=== PATIENT | female | born 1965 | race Caucasian/White ===

== ENCOUNTER 2017-06-24 18:25 | Observation (INO) | payer BC, MEDICAID ==
[2017-06-24] MEDS ORDERED: Sodium Chloride 0.9% 1000 ML 1,000 ML IV STA (19:53)
[2017-06-24] MEDS ORDERED: Sodium Chloride 0.9% 1000 ML 1,000 ML ONE (19:59)
[2017-06-24] MEDS ORDERED: Hydromorphone 1 mg/ml Ampule IV ONE (20:01)
[2017-06-24] MEDS ORDERED: Zofran 4 MG/2 ML VIAL IV ONE (20:01)
[2017-06-24] MEDS ORDERED: PROTONIX 40 MG IV IV ONE ×2 (20:01→20:11)
--- NOTE | 2017-06-24 20:09 | ERPHSYRPT ---
- History of Present Illness Time Seen by Provider: 06/24/17 19:40 Historian: patient Exam Limitations: clinical condition Patient Subjective Stated Complaint: pt states she has been having rt side abd pain radiating to rt shoulder sice approx 1100 today. Triage Nursing Assessment: pt alert and oriented, answerrs questions approp. pt ambulatory with slow steady gait noted. respirations nonalbored with lungs cta. abd soft. bowel sounds present. Physician History: PATIENT IS 3 WEEKS POSTOPERATIVE LAPAROSCOPIC CHOLECYSTECTOMY WHO COMPLAINS OF RIGHT LOWER ABDOMINAL PAINS PROGRESSIVE THROUGHOUT THE DAY, STATES PAIN RADIATES TO HER RIGHT SHOULDER BLADE. HAS ASSOCIATED NAUSEA. DENIES EMESIS OR DIARRHEA. HOSPITALIZED FOR ATRIAL FIBRILLATION, HAD NORMAL CARDIAC CATHERIZATION, WITH ELIQUIS AND COREG DISCONTINUED Timing/Duration: today Activities at Onset: none Quality: sharpness, stabbing Abdominal Pain Onset Location: RLQ Pain Radiation: other (TO RIGHT SHOULDER) Severity of Pain-Max: severe Severity of Pain-Current: severe Modifying Factors: Improves With: movement Associated Symptoms: nausea Previous symptoms: same symptoms as today Allergies/Adverse Reactions: morphine Allergy (Verified 06/24/17 19:21) Home Medications: Apixaban [Eliquis] 5 mg PO BID 06/24/17 [History] Carvedilol 6.25 mg [Coreg 6.25 MG] 6.25 mg PO BID 06/24/17 [History] Hydrocodone/Acetaminophen [[employer] 5-325 Tablet] 1 each PO Q4HPRN PRN 06/24/17 [ History] Lisinopril 10 mg [Zestril 10 MG] 10 mg PO DAILY 06/24/17 [History] Hx Tetanus, Diphtheria Vaccination/Date Given: Yes Hx Influenza Vaccination/Date Given: Yes (2016) Hx Pneumococcal Vaccination/Date Given: No Immunizations Up to Date: Yes - Review of Systems Constitutional: No Fever, No Chills Eyes: No Symptoms Ears, Nose, & Throat: No Symptoms Respiratory: No Cough, No Dyspnea Cardiac: No Symptoms Abdominal/Gastrointestinal: Abdominal Pain, Nausea Genitourinary Symptoms: No Symptoms Musculoskeletal: No Symptoms Psychological: No Symptoms Hematologic/Lymphatic: No Symptoms - Past Medical History Cardiac History: Hypertension GI Medical History: Gallbladder Disease - Past Surgical History Past Surgical History: Yes Gastrointestinal: Cholecystectomy Female Surgical History: Hysterectomy, Section - Social History Smoking Status: Never smoker Exposure to second hand smoke: No Drug Use: none Patient Lives Alone: No - Female History Hx Last Menstrual Period: hyster 2009 - Nursing Vital Signs Nursing Vital Signs: Initial Vital Signs Temperature 97.9 F 06/24/17 19:13 Pulse Rate 103 H 06/24/17 19:13 Respiratory Rate 24 06/24/17 19:13 Blood Pressure 128/76 06/24/17 19:13 O2 Sat by Pulse Oximetry 99 06/24/17 19:13 Pain Scale Pain Intensity 7 - Physical Exam General Appearance: moderate distress Eye Exam: PERRL/EOMI, eyes nml inspection Ears, Nose, Throat Exam: normal ENT inspection Neck Exam: normal inspection Respiratory Exam: normal breath sounds, lungs clear, No respiratory distress Cardiovascular Exam: regular rate/rhythm Gastrointestinal/Abdomen Exam: soft, normal bowel sounds, tenderness (MARKED RUQ AND RIGHT SUBCOSTAL TENDERNESS WITH GUARDING) Back Exam: normal inspection, normal range of motion, No CVA tenderness, No vertebral tenderness Extremity Exam: normal inspection, normal range of motion, pelvis stable Neurologic Exam: alert, oriented x 3, cooperative, normal mood/affect, nml cerebellar function, sensation nml, No motor deficits SpO2 Interpretation: normal SpO2: 99 Oxygen Delivery: Room Air - Course EKG Interpreted by Me: RATE, Sinus Rhythm, NORMAL AXIS, Other (FLAT T-WAVES ANTERIORLATERAL ) - CT Exams Chest CT Interpretation: Tele-radiologist Report (NO EVIDENCE OF PULMONARY EMBOLISM) Abdomen/Pelvis CT Interpretation: Tele-radiologist Report (GALLBLADDER AND BILE DUCTS WTHOUT CALCIFIED STONES OR DUCTAL DILATION, NO BOWEL OBSTRUCTION, FREE AIR, NO FINGINGS TO SUGGEST APPENDIX, THERE IS A SMALL AMOUNT OF SLIGHTLY HYPERDENSE FREE FLUID IN THE ABDOMEN AND PELVIS, NO DISCRETE FLUID COLLECTION) Ordered Tests: Active Orders 24 hr Category Date Time Status Up With Assistance ROUTINE Activity 06/24/17 23:09 Active Admission/Status Order ROUTINE Care 06/24/17 23:10 Active Call Admit Doctor for Orders ON ADMISSION Care 06/24/17 23:10 Active Code Status Order ROUTINE Care 06/24/17 23:10 Active EKG-ER Only STAT Care 06/24/17 19:53 Active IV Care Q6H Care 06/24/17 23:10 Active IV Insertion STAT Care 06/24/17 19:53 Active Oxygen-ED Only NASAL CANNULA 2 lpm Care 06/24/17 19:53 Active Vital Signs Q4H Care 06/24/17 23:09 Active Consult Surgery ROUTINE Cons 06/24/17 23:09 Active NPO Diet 06/24/17 23:11 Active ABDOMEN AND PELVIS W CONTRAST [CT] Stat Exams 06/24/17 20:02 Taken CHEST WITH CONTRAST [CT] Stat Exams 06/24/17 19:55 Taken AMYLASE Stat Lab 06/24/17 20:01 Completed BLOOD CULTURE Stat Lab 06/24/17 20:15 Ordered CBC W DIFF AM.LAB Lab 06/25/17 04:00 Ordered CBC W DIFF Stat Lab 06/24/17 20:15 Completed CMP Stat Lab 06/24/17 20:15 Completed CULTURE,URINE Stat Lab 06/24/17 20:44 Received LIPASE Stat Lab 06/24/17 20:01 Completed Lactic Acid Stat Lab 06/24/17 20:30 Completed TROPONIN Q3H Lab 06/24/17 20:15 Completed TROPONIN Q3H Lab 06/24/17 23:00 Ordered TROPONIN Q3H Lab 06/25/17 02:00 Ordered TROPONIN Q3H Lab 06/25/17 05:00 Ordered TROPONIN Q3H Lab 06/25/17 08:00 Ordered UA W/ MICROSCOPIC Stat Lab 06/24/17 20:44 Completed Oxygen NASAL CANNULA 2 lpm RT 06/24/17 23:09 Active Pulse Oximetry CONTINUOUS RT 06/24/17 23:13 Active Transfer Order Routine Transfer 06/24/17 Ordered Medication Summary Generic Name Dose Route Start Last Admin Trade Name Freq PRN Reason Stop Dose Admin Hydromorphone HCl 1 mg 06/24/17 23:09 Dilaudid 2 Mg Injection IV 06/29/17 23:08 Q4H PRN PRN PAIN Sodium Chloride 1,000 mls @ 100 mls/hr 06/24/17 23:15 Sodium Chloride 0.9% 1000 Ml IV 07/24/17 23:14 .Q10H MAIRA Ondansetron HCl 4 mg 06/24/17 23:09 Zofran 4 Mg/2 Ml Vial IV 07/24/17 23:08 Q6H PRN PRN NAUSEA/VOMITING Pantoprazole Sodium 40 mg 06/24/17 23:15 Protonix 40 Mg Iv IV 07/24/17 23:14 Q24H MAIRA Discontinued Medications Generic Name Dose Route Start Last Admin Trade Name Adonay PRN Reason Stop Dose Admin Hydromorphone HCl 2 mg 06/24/17 20:01 06/24/17 20:17 Hydromorphone 1 Mg/Ml Ampule IV 06/24/17 20:02 2 mg STAT ONE Administration Hydromorphone HCl Confirm 06/24/17 20:11 Hydromorphone 1 Mg/Ml Ampule Administered 06/24/17 20:12 Dose 2 mg .ROUTE .STK-MED ONE Sodium Chloride 1,000 mls @ 500 mls/hr 06/24/17 19:53 06/24/17 20:24 Sodium Chloride 0.9% 1000 Ml IV 06/24/17 21:52 500 mls/hr .Q2H STA Administration Sodium Chloride Confirm 06/24/17 19:59 Sodium Chloride 0.9% 1000 Ml Administered 06/24/17 20:00 Dose 1,000 mls @ ud .ROUTE .STK-MED ONE Ketorolac Tromethamine 30 mg 06/24/17 22:56 06/24/17 23:05 Toradol 30 Mg Injection IV 06/24/17 22:57 30 mg STAT ONE Administration Ketorolac Tromethamine Confirm 06/24/17 23:03 Toradol 30 Mg Injection Administered 06/24/17 23:04 Dose 30 mg .ROUTE .STK-MED ONE Ondansetron HCl 4 mg 06/24/17 20:01 06/24/17 20:17 Zofran 4 Mg/2 Ml Vial IV 06/24/17 20:02 4 mg STAT ONE Administration Ondansetron HCl Confirm 06/24/17 20:11 Zofran 4 Mg/2 Ml Vial Administered 06/24/17 20:12 Dose 4 mg .ROUTE .STK-MED ONE Pantoprazole Sodium 40 mg 06/24/17 20:01 06/24/17 20:17 Protonix 40 Mg Iv IV 06/24/17 20:02 40 mg STAT ONE Administration Pantoprazole Sodium Confirm 06/24/17 20:11 Protonix 40 Mg Iv Administered 06/24/17 20:12 Dose 40 mg IV .STK-MED ONE Lab/Rad Data: Laboratory Result Diagrams 06/24/17 20:15 06/24/17 20:15 Laboratory Results 06/24/17 06/24/17 06/24/17 Range/Units 20:44 20:30 20:15 WBC (4.0-10.5) K/mm3 RBC (4.1-5.4) M/mm3 Hgb (12.0-16.0) gm/dl Hct (35-47) % MCV (78-100) fl MCH (26-32) pg MCHC (32-36) g/dl RDW (11.5-14.0) % Plt Count (150-450) K/mm3 MPV (6-9.5) fl Gran % (36.0-66.0) % Lymphocytes % (24.0-44.0) % Monocytes % (0.0-12.0) % Eosinophils % (0.00-5.0) % Basophils % (0.0-0.4) % Basophils # (0-0.4) Sodium (136-145) mEq/L Potassium (3.5-5.1) mEq/L Chloride (98-107) mEq/L Carbon Dioxide (21-32) mEq/L Anion Gap (5-15) MEQ/L BUN (9-20) mg/dL Creatinine (0.55-1.30) mg/dl Estimated GFR ML/MIN Glucose (70-110) MG/DL Lactic Acid 1.4 (0.4-2.0) Calcium (8.5-10.1) mg/dL Total Bilirubin (0.2-1.0) mg/dL AST (15-37) U/L ALT (12-78) U/L Alkaline Phosphatase (46-116) U/L Troponin I < 0.017 (0.000-0.056) ng/ml Serum Total Protein (6.4-8.2) gm/dL Albumin (3.4-5.0) g/dL Amylase (25-115) U/L Lipase (73-393) U/L Ur Collection Type VOID Urine Color YELLOW (YELLOW) Urine Appearance CLOUDY (CLEAR) Urine pH 5.0 (5-6) Ur Specific [place] 1.025 (1.005-1.025) Urine Protein TRACE (Negative) Urine Ketones SMALL (NEGATIVE) Urine Blood 250 (0-5) Skyler/ul Urine Nitrite NEGATIVE (NEGATIVE) Urine Bilirubin NEGATIVE (NEGATIVE) Urine Urobilinogen NORMAL (0-1) mg/dL Ur Leukocyte Esterase TRACE (NEGATIVE) Urine Microscopic RBC 2-5 (0-2) /HPF Urine Microscopic WBC 2-5 (0-5) /HPF Ur Epithelial Cells MODERATE (FEW) /HPF Calcium Oxalate Crystal 5-10 (NEGATIVE) /HPF Amorphous Crystals MANY (NEGATIVE) /HPF Urine Bacteria FEW (NEGATIVE) /HPF Urine Mucus SLIGHT (NEGATIVE) /HPF Urine Culture Reflexed YES (NO) Urine Glucose 50 (NEGATIVE) mg/dL Specimen Received 06/24/17 2030 06/24/17 06/24/17 06/24/17 Range/Units 20:15 20:15 20:01 WBC 14.2 H (4.0-10.5) K/mm3 RBC 3.68 L (4.1-5.4) M/mm3 Hgb 11.2 L (12.0-16.0) gm/dl Hct 34.4 L (35-47) % MCV 93.5 (78-100) fl MCH 30.4 (26-32) pg MCHC 32.6 (32-36) g/dl RDW 14.3 H (11.5-14.0) % Plt Count 514 H (150-450) K/mm3 MPV 10.7 H (6-9.5) fl Gran % 84.8 H (36.0-66.0) % Lymphocytes % 10.6 L (24.0-44.0) % Monocytes % 3.7 (0.0-12.0) % Eosinophils % 0.8 (0.00-5.0) % Basophils % 0.1 (0.0-0.4) % Basophils # 0.02 (0-0.4) Sodium 140 (136-145) mEq/L Potassium 4.2 (3.5-5.1) mEq/L Chloride 104 (98-107) mEq/L Carbon Dioxide 28.0 (21-32) mEq/L Anion Gap 11.8 (5-15) MEQ/L BUN 14 (9-20) mg/dL Creatinine 0.88 (0.55-1.30) mg/dl Estimated GFR > 60 ML/MIN Glucose 135 H (70-110) MG/DL Lactic Acid (0.4-2.0) Calcium 9.5 (8.5-10.1) mg/dL Total Bilirubin 0.50 (0.2-1.0) mg/dL AST 27 (15-37) U/L ALT 41 (12-78) U/L Alkaline Phosphatase 85 (46-116) U/L Troponin I (0.000-0.056) ng/ml Serum Total Protein 7.6 (6.4-8.2) gm/dL Albumin 3.8 (3.4-5.0) g/dL Amylase 63 (25-115) U/L Lipase 347 (73-393) U/L Ur Collection Type Urine Color (YELLOW) Urine Appearance (CLEAR) Urine pH (5-6) Ur Specific [place] (1.005-1.025) Urine Protein (Negative) Urine Ketones (NEGATIVE) Urine Blood (0-5) Skyler/ul Urine Nitrite (NEGATIVE) Urine Bilirubin (NEGATIVE) Urine Urobilinogen (0-1) mg/dL Ur Leukocyte Esterase (NEGATIVE) Urine Microscopic RBC (0-2) /HPF Urine Microscopic WBC (0-5) /HPF Ur Epithelial Cells (FEW) /HPF Calcium Oxalate Crystal (NEGATIVE) /HPF Amorphous Crystals (NEGATIVE) /HPF Urine Bacteria (NEGATIVE) /HPF Urine Mucus (NEGATIVE) /HPF Urine Culture Reflexed (NO) Urine Glucose (NEGATIVE) mg/dL Specimen Received - Progress Progress: pain not gone completely Progress Note: 06/24/17 20:08 IV NORMAL SALINE 500ML/HR, ZOFRAN 4MG, PROTONIX 40MG, DILAUDID 2MG IV, OXYGEN 2L 06/24/17 23:[address] Keara (DISCUSSED WITH DR Rodrigo AVENDAÑO FOR ADMISSION), Other ( CONSULTED DR PHILIP ALVARADO FOR SURGERY CONSULT IN AM) - Departure Time of Disposition: 23:20 Departure Disposition: Observation Clinical Impression: ACUTE ABDOMINAL PAIN Condition: Stable Critical Care Time: No Referrals: GONZALO MCNEAL [Primary Care Provider] -
[2017-06-24] MEDS ORDERED: Hydromorphone 1 mg/ml Ampule ONE (20:11)
[2017-06-24] MEDS ORDERED: Zofran 4 MG/2 ML VIAL ONE (20:11)
[2017-06-24 20:22] LABS: BASOPHIL % 0.1 % (0.0-0.4); Eosinophil % 0.8 % (0.00-5.0); Granulocytes % 84.8 % (36.0-66.0); Lymphocytes % 10.6 % (24.0-44.0); Mean Cell Volume 93.5 fl (78-100); Mean Corpuscular Hemoglobin 30.4 pg (26-32); Mean Platelet Volume 10.7 fl (6-9.5); Monocytes % 3.7 % (0.0-12.0); Platelet Count 514 K/mm3 (150-450); Red Blood Count 3.68 M/mm3 (4.1-5.4); Red Cell Distribution Width 14.3 % (11.5-14.0); White Blood Count 14.2 K/mm3 (4.0-10.5)
[2017-06-24 20:40] LABS: LIPASE 347 U/L (73-393)
[2017-06-24 20:43] LABS: ALBUMIN 3.8 g/dL (3.4-5.0); ALKALINE PHOSPHATASE 85 U/L (46-116); ANION GAP 11.8 MEQ/L (5-15); BLOOD UREA NITROGEN 14 mg/dL (9-20); CHLORIDE 104 mEq/L (98-107); Glucose 135 MG/DL (70-110); Potassium 4.2 mEq/L (3.5-5.1); SGOT/AST 27 U/L (15-37); SGPT/ALT 41 U/L (12-78); SODIUM 140 mEq/L (136-145); Total Protein 7.6 gm/dL (6.4-8.2)
[2017-06-24 21:12] LABS: Collection Type VOID; Leukocyte Esterase TRACE (NEGATIVE)
[2017-06-24 21:13] LABS: ADD URINE CULTURE? YES (NO); Bacteria FEW /HPF (NEGATIVE); Bilirubin NEGATIVE (NEGATIVE); Blood 250 Ery/ul (0-5); COMPLETE URINE MICROSCOPIC? YES; Epithelial Cells MODERATE /HPF (FEW); Glucose 50 mg/dL (NEGATIVE); Mucus SLIGHT /HPF (NEGATIVE)
[2017-06-24] MEDS ORDERED: TORAdol 30 mg Injection IV ONE (22:56)
[2017-06-24] MEDS ORDERED: TORAdol 30 mg Injection ONE (23:03)
[2017-06-24] MEDS ORDERED: Zofran 4 MG/2 ML VIAL IV PRN (23:09)
[2017-06-24] MEDS ORDERED: PROTONIX 40 MG IV IV SCH (23:15)
[2017-06-25] MEDS ORDERED: DILAUDID 2 MG INJECTION ONE (02:30)
[2017-06-25] MEDS: DILAUDID 2 MG INJECTION IV PRN ×2 (02:33→11:58)
[2017-06-25] MEDS: Sodium Chloride 0.9% 1000 ML 1,000 ML IV SCH ×2 (02:33→11:57)
[2017-06-25 06:01] LABS: Eosinophil % 0.9 % (0.00-5.0); Granulocytes % 70.2 % (36.0-66.0); Lymphocytes % 21.9 % (24.0-44.0); Mean Cell Volume 94.3 fl (78-100); Mean Platelet Volume 10.4 fl (6-9.5); Platelet Count 339 K/mm3 (150-450); Red Blood Count 2.96 M/mm3 (4.1-5.4); Red Cell Distribution Width 14.1 % (11.5-14.0)
--- NOTE | 2017-06-25 08:56 | XRAY ---
Indication: Right upper quadrant pain. Status post cholecystectomy June 02, 2017. Multiple contiguous axial images obtained through the abdomen and pelvis using 80 cc Isovue 370 contrast. Comparison: May 18, 2017. Lung bases now demonstrates mild bilateral dependent atelectasis with stable tiny right base calcified granuloma. Heart is not enlarged. Stable small hiatal hernia. There has been interval cholecystectomy. There is now small free fluid in the gallbladder fossa and around the liver and spleen. Additional small free fluid along the left colic gutter and in the pelvis. No walled off fluid collection or free air. Stable scattered calcified splenic granulomas, left renal cysts, and hysterectomy. Previous right renal calculus presumed obscured due to contrast. Noncontrasted stomach and bowel loops appear nonobstructed. Remaining liver, pancreas, adrenal glands, kidneys, ureters, bladder, and aorta appear unremarkable. No pathologic retroperitoneal lymphadenopathy. Impression: 1. Status post cholecystectomy with new abdomen/pelvic free fluid. No walled off fluid collection or free air. 2. Stable small hiatal hernia and left ovary cyst. Comment: Preliminary interpretation was made by [facility]. No discrepancy. CT DI 20.45
--- NOTE | 2017-06-25 09:00 | XRAY ---
Indication: Chest and right upper quadrant abdominal pain. Status post cholecystectomy June 02, 2017. History atrial fibrillation. Multiple contiguous axial images obtained through the chest using 80 cc Isovue 370 contrast and PE protocol. Comparison: None. There is satisfactory opacification of the pulmonary arteries to include the lobar and segmental branches. No filling defect or pulmonary embolus. Heart is not enlarged. Aorta is normal in course and caliber. Subcarinal calcified node. No pathologic mediastinal/hilar lymphadenopathy. Small hiatal hernia. Examination of lung parenchyma demonstrates mild bilateral dependent atelectasis and right middle lobe calcified granuloma. No suspicious pulmonary mass, infiltrate, or effusion. Bony thorax intact with minimal degenerative changes throughout the spine. CT abdomen reported separately. Impression: 1. Negative pulmonary embolus. No acute cardiopulmonary abnormalities. 2. Incidental small hiatal hernia and evidence for old granulomatous disease. Comment: Preliminary interpretation was made by [facility]. No discrepancy. CT DI 23.35
--- NOTE | 2017-06-25 10:05 | XRAY ---
Indication: Severe abdominal pain. Status post cholecystectomy. Rule out biloma. Comparison: None Patient received 5.2 mCi technetium 99 Choletec. Immediate anterior planar imaging was performed for 60 minutes. Normal hepatic activity on the first image. Normal biliary and biliary to bowel activity within 10 minutes. No gallbladder activity consistent with cholecystectomy. There is no abnormal extra biliary activity or evidence for biloma. Impression: Negative for biliary leak or biloma.
--- NOTE | 2017-06-25 10:56 | CONS ---
CONSULT DATE: 06/25/2017 HISTORY: The patient is a 52 year-old female who had laparoscopic cholecystectomy three weeks or so ago came in with some pain in abdomen radiating up to right chest. She had CT negative for pulmonary embolism. She had white blood cell count 8, hemoglobin 8.9. Lactic acid normal. CT of the chest was negative for pulmonary embolism. She had a small amount of fluid on CT of the abdomen otherwise fairly unremarkable CT abdomen. She had a HIDA scan this morning showed no evidence of bile leak. She is feeling better today and the pain she had is much improved. PAST MEDICAL HISTORY: As noted above. Atrial fibrillation in the past and hypertension. HOME MEDICATIONS: She has been on Eliquis, Coreg, Manning, Zestril. ALLERGIES: MORPHINE. FAMILY HISTORY: Negative in regards to this problem. SOCIAL HISTORY: No smoking or alcohol abuse. PAST SURGICAL HISTORY: Hysterectomy, section, cholecystectomy in the past. REVIEW OF SYSTEMS: Twelve systems reviewed per admission assessment. Again, she is feeling quite well this morning. PHYSICAL EXAMINATION: GENERAL: No acute distress. HEENT: Sclera nonicteric. NECK: No JVD. CHEST: Equal excursion, nonlabored breathing. CVS: Regular rate and rhythm. ABDOMEN: Soft. Incision healing well. Minimal discomfort. No rebound. No guarding. No peritoneal signs. EXTREMITIES: No significant edema. NEURO: Alert, moving extremities grossly symmetrically. LAB DATA AND TESTS: Liver function test normal. CT negative for pulmonary embolism. HIDA scan negative for any bile leak. IMPRESSION: Postoperative vague aches and pains of unclear etiology either way she is much improved and no obvious collections. No obvious pulmonary embolism. No obvious bile leak. No need for any emergent surgical intervention as she is feeling much better today. Whether this is just postoperative biliary spasm or not is unclear. Either way she seems to be improved. I will see if she can try to advance her diet. If she can advance her diet she can be released and follow up in the office. Should she have some persistent symptoms down the road could consider upper endoscopy at this point. As she seems to be doing quite well at this time will allow her to advance her diet. This patient was seen for Dr. Ulrich who was contact clerk for our group.
[2017-06-25 11:12] VITALS: BP 161/79; PULSE 82; O2SAT 95
--- NOTE | 2017-06-25 13:16 | PCM.DCORD ---
- Discharge Discharge Date: 06/25/17 Disposition: Home, Self-Care Condition: Stable Prescriptions: New Ibuprofen 600 mg PO TID PRN #30 tablet PRN Reason: Pain PANTOPRAZOLE 40 mg Tablet [Protonix 40MG Tablet] 40 mg PO BID #60 tab Continue Hydrocodone/Acetaminophen [[employer] 5-325 Tablet] 1 each PO Q4HPRN PRN PRN Reason: Pain Lisinopril 10 mg [Zestril 10 MG] 5 mg PO DAILY Aspirin 81 gm Chew [Baby Aspirin 81 mg Chew] 1 tab PO DAILY Follow up with: GONZALO MNCEAL [NON-STAFF PHY W/O PRIVILEGES] - DAVON ALVARADO [ACTIVE STAFF] - 1 Week
--- NOTE | 2017-06-25 13:24 | PCM.HP ---
History of Present Illness - Chief Complaint Chief Complaint: abd pain Date: 06/25/17 History of Present Illness: is a 52 year old female. who presented with worsening right upper quadrant pain radiating to the back and shoulder 3 weeks after cholecystectomy. She had cholecystectomy for some vague pains and incidental gallstones found after she was treated for kidney stones. She was initially discharged but then readmitted to [facility] for 6 days after apparently having atrial fibrillation and had normal heart cath and echo per patient and is following with Dr. Tanner from cardiology who stopped her carvedilol and her eliquis after only being on a short duration due to in her words him saying she did not need it. She has been having discomfort at home. The hydrocodone just makes her feel bad and doesn't help with the pain. She tried tramadol with no help. She states she usually uses ibuprofen for her pain but has not tried with this due to her other problems. She has no heartburn, no vomiting, no diarrhea and no melena or bloody stools. - Review of Systems Constitutional: No Fever, No Chills Eyes: No Symptoms Ears, Nose, & Throat: No Symptoms Respiratory: No Cough, No Short Of Breath Cardiac: No Chest Pain, No Edema, No Syncope Abdominal/Gastrointestinal: Abdominal Pain, No Nausea, No Vomiting, No Diarrhea Genitourinary Symptoms: No Dysuria Musculoskeletal: No Back Pain, No Neck Pain Skin: No Rash Neurological: No Dizziness, No Focal Weakness, No Sensory Changes Psychological: No Symptoms Endocrine: No Symptoms Hematologic/Lymphatic: No Symptoms Immunological/Allergic: No Symptoms Medications & Allergies Home Medications: Home Medication List Hydrocodone/Acetaminophen [[place] 5-325 Tablet] 1 each PO Q4HPRN PRN 06/24/17 [ History Confirmed 06/24/17] Lisinopril 10 mg [Zestril 10 MG] 5 mg PO DAILY 06/24/17 [History Confirmed 06/25/17] Aspirin 81 gm Chew [Baby Aspirin 81 mg Chew] 1 tab PO DAILY 06/25/17 [ History Confirmed 06/25/17] Ibuprofen 600 mg PO TID PRN #30 tablet 06/25/17 [Rx] PANTOPRAZOLE 40 mg Tablet [Protonix 40MG Tablet] 40 mg PO BID #60 tab [Rx] Allergies/Adverse Reactions: Allergies Allergy/AdvReac Type Severity Reaction Status Date / Time morphine Allergy Verified 06/24/17 19:21 - Past Medical History Cardiac History: Hypertension GI Medical History: Gallbladder Disease - Female History Hx Last Menstrual Period: hyster 2010 Are you now?: No - Past Surgical History Past Surgical History: Yes GI Surgical History: Cholecystectomy Female Surgical History: Hysterectomy, Section Other Surgical History: bartholin gland removed - Social History Smoking Status: Never smoker Exposure to second hand smoke: No Alcohol: Occasionally Drug Use: none - Physical Exam Vital Signs: Vital Signs - 24 hr Temp Pulse Resp BP Pulse Ox 06/25/17 11:11 98.5 F 82 16 161/79 95 06/25/17 06:54 98.3 F 90 16 167/80 97 06/25/17 04:00 98.1 F 86 15 144/76 92 L 06/25/17 00:20 98.3 F 96 H 16 142/74 96 06/25/17 00:00 96 06/24/17 23:42 80 16 129/72 98 06/24/17 23:21 99 06/24/17 23:07 84 20 145/76 98 06/24/17 22:50 86 22 158/89 98 06/24/17 21:52 88 20 168/91 99 06/24/17 20:50 16 06/24/17 20:25 82 20 107/71 100 06/24/17 19:13 97.9 F 103 H 24 128/76 99 Oxygen-Last 24 hours O2 Percentage 2 Liters = 28% O2 Percentage 2 Liters = 28% O2 Percentage 2 Liters = 28% General Appearance: no apparent distress, alert, obese Neurologic Exam: alert, oriented x 3, cooperative, normal mood/affect, nml cerebellar function, nml station & gait, sensation nml, No motor deficits Eye Exam: PERRL/EOMI, eyes nml inspection Ears, Nose, Throat Exam: normal ENT inspection, pharynx normal, moist mucous membranes Neck Exam: normal inspection, non-tender, supple, full range of motion Respiratory Exam: normal breath sounds, lungs clear, No respiratory distress Cardiovascular Exam: regular rate/rhythm, normal heart sounds, normal peripheral pulses Gastrointestinal/Abdomen Exam: soft, normal bowel sounds, tenderness (right upper quadrant and epigastric area), No distention, No mass, No ecchymosis, No rebound Back Exam: normal inspection, normal range of motion, No CVA tenderness, No vertebral tenderness Extremity Exam: normal inspection, normal range of motion, pelvis stable Skin Exam: normal color, warm, dry, No rash Lymphatic Exam: No adenopathy Results - Labs Lab/Micro Results: Lab Results-Last 24 Hours 06/25/17 Range/Units 05:30 WBC 8.0 (4.0-10.5) K/mm3 RBC 2.96 L (4.1-5.4) M/mm3 Hgb 8.9 L (12.0-16.0) gm/dl Hct 27.9 L (35-47) % MCV 94.3 (78-100) fl MCH 30.0 (26-32) pg MCHC 31.9 L (32-36) g/dl RDW 14.1 H (11.5-14.0) % Plt Count 339 (150-450) K/mm3 MPV 10.4 H (6-9.5) fl Gran % 70.2 H (36.0-66.0) % Lymphocytes % 21.9 L (24.0-44.0) % Monocytes % 7.0 (0.0-12.0) % Eosinophils % 0.9 (0.00-5.0) % Basophils % 0.0 (0.0-0.4) % Basophils # 0 (0-0.4) - Radiology Impressions Radiology Exams & Impressions: Radiology Procedures Category Date Time Status HIDA-GALL BLADDER [NUCMED] Urgent Exams 06/25/17 00:33 Completed - Other Procedures and Tests Respiratory Therapy 06/24/17 23:09 Oxygen NASAL CANNULA 2 lpm Assessment/Plan (1) Post-operative pain Current Visit: Yes Status: Acute Assessment & Plan: she has all the pain in the area of the right upper quadrant the worse. She has free fluid with no evidence of infection on CT and afebrile She was evaluated by Dr. [employer] education teacher for Dr. Ulrich today and will continue with outpatient f/u no evidence of biliary leak possible biliary spasms labs now wnl except anemia will add protonix bid as will try ibuprofen 600 mg tid prn for her pain as she has not tolerated the opiate medications for her pain. She is to f/u with Dr. Ulrich to consider EGD vs MRCP vs ERCP was discussed if her pain fails to improve however at this time with no bleeding and normal liver enzymes as well as lipase will hold off on these testing. She also notes extensive testing already done at [facility] but we do not have those results available at this time. Code(s): G89.18 - OTHER ACUTE POSTPROCEDURAL PAIN (2) Abdominal pain Current Visit: Yes Status: Acute Code(s): R10.9 - UNSPECIFIED ABDOMINAL PAIN (3) Hypertension Current Visit: Yes Status: Acute Code(s): I10 - ESSENTIAL (PRIMARY) HYPERTENSION
[2017-06-25] MEDS ORDERED: NORCO 5/325 MG PO PRN (13:36)
[2017-06-25] MEDS ORDERED: Zestril 10 MG PO SCH (14:00)
[2017-06-25] MEDS ORDERED: PROTONIX 40 MG IV IV SCH (22:00)
== END 2017-06-25 14:20 | disposition home or self-care (01) ==
LOC: ED 18:25 → MED SURG 06-25 00:09
PROVIDERS: ADMIT Family Medicine; ATTEND Family Medicine
DX: G89.18 Other acute postprocedural pain (principal); R10.31 Right lower quadrant pain; I10 Essential (primary) hypertension; Z90.49 Acquired absence of other specified parts of digestive tract; I48.91 Unspecified atrial fibrillation; Z79.01 Long term (current) use of anticoagulants; Z79.899 Other long term (current) drug therapy; F45.42 Pain disorder with related psychological factors
CPT/HCPCS: 36000; 36415; 71260; 74177; 78226; 80053; 81000; 82150; 83605; 83690; 84484; 85025; 87040; 87086; 93005; 96360; 96374; 96375; 99285; A9537; G0378; J1170; J1885; J2405; A9270-GY

== ENCOUNTER 2018-10-25 08:25 | Emergency (ER) | payer MEDICAID, OTHER ==
[2018-10-25 08:48] VITALS: O2SAT 98
[2018-10-25] MEDS ORDERED: TORAdol 30 mg Injection IM ONE (08:49)
[2018-10-25] MEDS ORDERED: TORAdol 30 mg Injection ONE (08:54)
--- NOTE | 2018-10-25 08:57 | ERPHSYRPT ---
- History of Present Illness Time Seen by Provider: 10/25/18 08:53 Source: patient Exam Limitations: no limitations Patient Subjective Stated Complaint: states pain in low back going into right hip x 3 weeks. no known injury Triage Nursing Assessment: alert and tearful. able to ambulate. denies injury. denies urinary symptoms. pain in low back that goes to right hip. GODINEZ pain decrease with legs drawm up. Physician History: 53-year-old white female with history of high blood pressure patient arrives with complaint of pain in her low lumbar region radiating into her right hip symptoms for 3 weeks no neurologic symptoms no urinary symptoms. Pain is worse with movement denies obvious injury. Past medical history includes high blood pressure gallbladder disease. Past surgical history cholecystectomy hysterectomy and Timing/Duration: week(s) (3 weeks) Severity: moderate Modifying Factors: Worsens With: cold therapy, eating, immobilization, medication, movement, rest, acetaminophen, ibuprofen, nothing Associated Symptoms: fever, No nausea, No vomiting, No abdominal pain, No shortness of breath, No heartburn, No diaphoresis, No cough, No chills, No chest pain, No headaches, No loss of appetite, No malaise, No rash, No syncope, No seizure, No weakness Allergies/Adverse Reactions: morphine Allergy (Verified 06/24/17 19:21) Home Medications: Hydrocodone/Acetaminophen [Brookesmith 5-325 Tablet] 1 each PO Q4HPRN PRN 06/24/17 [ History] Lisinopril 10 mg [Zestril 10 MG] 5 mg PO DAILY 06/24/17 [History] Aspirin 81 gm Chew [Baby Aspirin 81 mg Chew] 1 tab PO DAILY 06/25/17 [ History] Hx Tetanus, Diphtheria Vaccination/Date Given: Yes Hx Influenza Vaccination/Date Given: Yes (2016) Hx Pneumococcal Vaccination/Date Given: No - Review of Systems Constitutional: No Fever, No Chills Eyes: No Symptoms Ears, Nose, & Throat: No Symptoms Respiratory: No Cough, No Dyspnea Cardiac: No Chest Pain, No Edema, No Syncope Abdominal/Gastrointestinal: No Abdominal Pain, No Nausea, No Vomiting, No Diarrhea Genitourinary Symptoms: No Dysuria Musculoskeletal: Back Pain, No Arthralgias, No Neck Pain, No Deformity, No Fall , No Injury, No Joint Redness, No Joint Pain, No Joint Swelling, No Myalgias Skin: No Rash Neurological: No Dizziness, No Focal Weakness, No Sensory Changes Psychological: No Symptoms Endocrine: No Symptoms All Other Systems: Reviewed and Negative - Past Medical History Pertinent Past Medical History: Yes Cardiac History: Hypertension GI Medical History: Gallbladder Disease - Past Surgical History Past Surgical History: Yes Gastrointestinal: Cholecystectomy Female Surgical History: Hysterectomy, Section Other Surgical History: bartholin gland removed - Social History Smoking Status: Never smoker Exposure to second hand smoke: No Drug Use: none Patient Lives Alone: No - Female History Hx Now: No - Nursing Vital Signs Nursing Vital Signs: Initial Vital Signs Temperature 98.0 F 10/25/18 08:40 Pulse Rate 114 H 10/25/18 08:40 Respiratory Rate 18 10/25/18 08:40 Blood Pressure 184/109 10/25/18 08:40 O2 Sat by Pulse Oximetry 98 10/25/18 08:40 Pain Scale Pain Intensity 4 - Physical Exam General Appearance: mild distress, alert Eye Exam: PERRL/EOMI, eyes nml inspection Ears, Nose, Throat Exam: normal ENT inspection, TMs normal, pharynx normal, moist mucous membranes Neck Exam: normal inspection, non-tender, supple, full range of motion Respiratory Exam: normal breath sounds, lungs clear, No respiratory distress Cardiovascular Exam: regular rate/rhythm, normal heart sounds, normal peripheral pulses Pelvic Exam: not done Back Exam: other (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), No CVA tenderness Extremity Exam: normal inspection, normal range of motion, pelvis stable, No limited range of motion Neurologic Exam: alert, oriented x 3, cooperative, normal mood/affect, nml cerebellar function, nml station & gait, sensation nml, No motor deficits Skin Exam: normal color, warm, dry, No rash Lymphatic Exam: No adenopathy SpO2 Interpretation: normal (98%) SpO2: 98 - Course Nursing assessment & vital signs reviewed: Yes - Radiology Exams L-Spine X-ray Interpretation: Discussed w/ radiologist (x-ray lumbar spine: Impression: Normal alignment with vertebral body heigdisc spaces maintained and mild bilateral L5-S1 degenerative facet arthropathy. There is now 11 mm right mid renal calculus and bilateral pelvic suture material. Remaining lumbar spine unremarkable.) Ordered Tests: Active Orders 24 hr Category Date Time Status LUMBAR LIMITED (2 OR 3 VIEWS) Stat Exams 10/25/18 08:51 Completed UA W/RFX UR CULTURE Stat Lab 10/25/18 09:00 Completed Urine Triage Profile Stat Lab 10/25/18 09:00 Completed Medication Summary Discontinued Medications Generic Name Dose Route Start Last Admin Trade Name Adonay PRN Reason Stop Dose Admin Ketorolac Tromethamine 60 mg 10/25/18 08:49 10/25/18 08:57 Toradol 30 Mg Injection IM 10/25/18 08:50 60 mg STAT ONE Administration Ketorolac Tromethamine Confirm 10/25/18 08:54 Toradol 30 Mg Injection Administered 10/25/18 08:55 Dose 60 mg .ROUTE .STK-MED ONE Lab/Rad Data: Laboratory Results 10/25/18 10/25/18 Range/Units 09:00 09:00 Urine Color SHARMAINE (YELLOW) Urine Appearance CLOUDY (CLEAR) Urine pH 5.0 (5-6) Ur Specific [place] 1.024 (1.005-1.025) Urine Protein 30 (Negative) Urine Ketones NEGATIVE (NEGATIVE) Urine Blood LARGE (0-5) Skyler/ul Urine Nitrite NEGATIVE (NEGATIVE) Urine Bilirubin NEGATIVE (NEGATIVE) Urine Urobilinogen 4 (0-1) mg/dL Ur Leukocyte Esterase NEGATIVE (NEGATIVE) Urine WBC (Auto) NONE (0-5) /HPF Urine RBC (Auto) 6-10 (0-2) /HPF U Epithel Cells (Auto) FEW (FEW) /HPF Urine Bacteria (Auto) NONE SEEN (NEGATIVE) /HPF Amorphous Crystals FEW (NEGATIVE) /HPF Urine Mucus (Auto) SLIGHT (NEGATIVE) /HPF Urine Culture Reflexed NO (NO) Urine Glucose NEGATIVE (NEGATIVE) mg/dL Urine Opiates Level NEGATIVE (NEGATIVE) Ur Methadone NEGATIVE (NEGATIVE) Urine Barbiturates NEGATIVE (NEGATIVE) Ur Phencyclidine (PCP) NEGATIVE (NEGATIVE) Urine Amphetamine NEGATIVE (NEGATIVE) U Benzodiazepine Level NEGATIVE (NEGATIVE) Urine Cocaine NEGATIVE (NEGATIVE) Urine Marijuana (THC) NEGATIVE (NEGATIVE) - Progress Progress: improved Progress Note: 10/25/18 10:04 Patient improvement not completely pain-free after Toradol 60 mg IM. Will send patient home with small amount of Dalia Tomas. 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 Patient will need to follow-up with her family doctor. Impression back pain (lumbar). Sciatica. 10/25/18 10:05 blood pressure markedly imarkedly improved 10/25/18 10:06 Patient does have an incidental right 11 mm renal stone on x-ray she is aware of this - Departure Time of Disposition: 10:06 Departure Disposition: Home Clinical Impression: Back pain Qualifiers: Back pain location: low back pain Chronicity: acute Back pain laterality: right Sciatica presence: with sciatica Sciatica laterality: sciatica of right side Qualified Code(s): M54.41 - Lumbago with sciatica, right side Condition: Fair Critical Care Time: No Referrals: GONZALO MCNEAL [Primary Care Provider] - Instructions: Low Back Pain (DC), Sciatica (DC) Additional Instructions: Return home. Brookesmith as prescribed. Flexeril as prescribed. OTC Advil 2 tablets every 6 hours as needed for pain. Follow-up with your family doctor. Return for acute distress or for severe symptoms. Prescriptions: Hydrocodone/APAP 5-325 Tab^^^ [Brookesmith 5-325 Tablet^^^] 1 tab PO Q6HPRN PRN #10 tablet MDD 6 PRN Reason: back pain Cyclobenzaprine HCl 10 mg [Cyclobenzaprine 10 MG] 10 mg PO TID #15 tablet
[2018-10-25 09:12] LABS: Amourphous Crystal FEW /HPF (NEGATIVE); Appearance CLOUDY (CLEAR); Bilirubin NEGATIVE (NEGATIVE); Blood LARGE Ery/ul (0-5); Epithelial Cells FEW /HPF (FEW); Glucose NEGATIVE (NEGATIVE); Ketones NEGATIVE (NEGATIVE); Leukocyte Esterase NEGATIVE (NEGATIVE); Mucus SLIGHT /HPF (NEGATIVE); Nitrite NEGATIVE (NEGATIVE); Protein,Urine Dip 30 (Negative); Specific Gravity 1.024 (1.005-1.025); Urobilinogen 4 mg/dL (0-1)
[2018-10-25 09:13] LABS: Bacteria NONE SEEN /HPF (NEGATIVE)
[2018-10-25 09:21] LABS: Amphetamine,Urine NEGATIVE (NEGATIVE); Barbiturate,Urine NEGATIVE (NEGATIVE); Benzodiazepine,Urine NEGATIVE (NEGATIVE); Cocaine,Urine NEGATIVE (NEGATIVE); Methadone,Urine NEGATIVE (NEGATIVE); Opiate,Urine NEGATIVE (NEGATIVE); PCP,Urine NEGATIVE (NEGATIVE); THC,Urine NEGATIVE (NEGATIVE)
--- NOTE | 2018-10-25 09:53 | XRAY ---
Indication: Back pain 3 weeks. Comparison: August 27, 2017. 3 views of the lumbar spine again demonstrates normal alignment with vertebral body heights/disc spaces maintained and mild bilateral L5-S1 degenerative facet arthropathy. There is now 11 mm right mid renal calculus and bilateral pelvic suture material. Remaining lumbar spine unremarkable.
[2018-10-25 10:00] VITALS: BP 138/79; PULSE 78
== END 2018-10-25 10:27 | disposition home or self-care (01) ==
LOC: ED 08:25
DX: M54.41 Lumbago with sciatica, right side (principal); I10 Essential (primary) hypertension
CPT/HCPCS: 72100; 80307; 81001; 96372; 99283; J1885

== ENCOUNTER 2019-11-10 09:34 | Emergency (ER) | payer MEDICAID ==
[2019-11-10] MEDS ORDERED: TORAdol 30 mg Injection IM ONE (10:00)
[2019-11-10] MEDS ORDERED: ULTRAM 50 MG PO ONE (10:00)
[2019-11-10 10:04] VITALS: BP 178/91; PULSE 100; O2SAT 100
[2019-11-10] MEDS ORDERED: TORAdol 30 mg Injection ONE (10:06)
[2019-11-10] MEDS ORDERED: ULTRAM 50 MG ONE (10:06)
--- NOTE | 2019-11-10 10:10 | ERPHSYRPT ---
- History of Present Illness Time Seen by Provider: 11/10/19 09:35 Patient Subjective Stated Complaint: pt here for pain to lower back. this is a chronic condition, pt states it has been worse for last 2 weeks now, she states pain is going down her leg, she has tried tylenol, motrin and her muscle relaxers Triage Nursing Assessment: pt alert, resp easy, skin w/d/p. walked in able to get self undressed, no Physician History: Patient is here with back pain. Chronic. Has been going on for several years. Worse over the last 2 weeks. Patient feels that it is worse because she has been quarantined for the last 2 weeks. Therefore, she is not working, she has not been moving around as much. She has no falls no trauma. Patient has no red flag symptoms for back pain today: No Loss of control of the bowel or bladder. No weakness or numbness in a leg or arm. No foot drop, disturbed gait. No high fever, no IV drug use. No saddle anaesthesia (numbness of the anus, perineum or genitals). No trauma or h/o cancer Location: left side lower back Quality: sharp Radiation: down left leg Severity: moderate Duration: acute on chronic Timing: gradual Modifying factors/associated signs and symptoms: home OTC medication, flexeril Allergies/Adverse Reactions: metoprolol [From Toprol XL] Allergy (Verified 11/10/19 10:04) morphine Allergy (Verified 06/24/17 19:21) Home Medications: Lisinopril 10 mg [Zestril 10 MG] 5 mg PO DAILY 06/24/17 [History] Aspirin 81 gm Chew [Baby Aspirin 81 mg Chew] 1 tab PO DAILY 06/25/17 [ History] Hx Tetanus, Diphtheria Vaccination/Date Given: Yes Hx Influenza Vaccination/Date Given: Yes Hx Pneumococcal Vaccination/Date Given: No Immunizations Up to Date: Yes Travel Risk - International Travel Have you traveled outside of the country in past 3 weeks: No Have you or anyone close to you been diagnosed with or: No Do your reside in a community with a known COVID-19 case?: Yes If Yes where:: [place] - Coronavirus Screening Has patient experienced Coronavirus symptoms: No - Review of Systems Constitutional: No Fever, No Chills Eyes: No Symptoms Ears, Nose, & Throat: No Symptoms Respiratory: No Cough, No Dyspnea Cardiac: No Chest Pain, No Edema, No Syncope Abdominal/Gastrointestinal: No Abdominal Pain, No Nausea, No Vomiting, No Diarrhea Genitourinary Symptoms: No Dysuria Musculoskeletal: Back Pain, No Neck Pain Skin: No Rash Neurological: No Dizziness, No Focal Weakness, No Sensory Changes Psychological: No Symptoms Endocrine: No Symptoms All Other Systems: Reviewed and Negative - Past Medical History Pertinent Past Medical History: Yes Cardiac History: Hypertension GI Medical History: Gallbladder Disease - Past Surgical History Past Surgical History: Yes Gastrointestinal: Cholecystectomy Female Surgical History: Hysterectomy, Section Other Surgical History: bartholin gland removed - Social History Smoking Status: Never smoker Exposure to second hand smoke: No Drug Use: none Patient Lives Alone: No - Female History Hx Last Menstrual Period: hyster Hx Now: No - Nursing Vital Signs Nursing Vital Signs: Initial Vital Signs Temperature 98.0 F 11/10/19 09:52 Pulse Rate 100 H 11/10/19 09:52 Respiratory Rate 16 11/10/19 09:52 Blood Pressure 178/91 11/10/19 09:52 O2 Sat by Pulse Oximetry 100 11/10/19 09:52 Pain Scale Pain Intensity 9 - Physical Exam General Appearance: no apparent distress, alert Eye Exam: PERRL/EOMI, eyes nml inspection Neck Exam: normal inspection, non-tender, supple, full range of motion, No meningismus, No midline tenderness Respiratory Exam: normal breath sounds, lungs clear, No respiratory distress Cardiovascular Exam: regular rate/rhythm, normal heart sounds Gastrointestinal Exam: soft, No tenderness, No mass Back Exam: point tenderness Extremity Exam: normal inspection, normal range of motion, No calf tenderness, No pedal edema Neurologic Exam: alert, oriented x 3, cooperative, disk 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 5 out of 5 strength. Full range of motion without pain. Compartments are soft, nontender. Overlying skin shows no tenting, bruising, ecchymosis. Motor: There is no pronator drift of out-stretched arms. Muscle bulk and tone are normal. Strength is full bilaterally. Reflexes: Reflexes are 2+ and symmetric at the biceps, triceps, knees, and ankles. Plantar responses are flexor. Sensory: Light touch sense are intact in bilateral upper and lower extremities. There is no sign of neglect. Coordination: Rapid alternating movements are intact. There is no dysmetria on [id number] and [id number]. There are no abnormal or extraneous movements. Romberg is absent. Gait/Stance: Posture is normal. Gait is steady with normal steps, base, arm swing, and turning. Heel and toe walking are normal. Tandem gait is normal. Ordered Tests: Active Orders 24 hr Category Date Time Status Isolation, Initiate & Maintain Q4H Care 11/10/19 10:03 Active LUMBAR LIMITED (2 OR 3 VIEWS) Stat Exams 11/10/19 10:31 Completed Medication Summary Discontinued Medications Generic Name Dose Route Start Last Admin Trade Name Freq PRN Reason Stop Dose Admin Ketorolac Tromethamine 30 mg 11/10/19 10:00 11/10/19 10:08 Toradol 30 Mg Injection IM 11/10/19 10:01 30 mg STAT ONE Administration Ketorolac Tromethamine Confirm 11/10/19 10:06 Toradol 30 Mg Injection Administered 11/10/19 10:07 Dose 30 mg .ROUTE .STK-MED ONE Tramadol HCl 50 mg 11/10/19 10:00 11/10/19 10:07 Ultram 50 Mg PO 11/10/19 10:01 50 mg STAT ONE Administration Tramadol HCl Confirm 11/10/19 10:06 Ultram 50 Mg Administered 11/10/19 10:07 Dose 50 mg .ROUTE .STK-MED ONE - Progress Progress: improved Progress Note: 11/10/19 10:09 No red flag symptoms for back pain today. Will obtain x-ray looking for any fracture, new bone lesions, other abnormality. We will give a Toradol shot and oral tramadol. 11/10/19 10:49 X-ray negative for any acute issues. Repeat neurological exam remained negative. Patient's pain is decreased after the medications given in ER. At this point time, will discharge patient home. Return here for any new or changing symptoms. - Departure Departure Disposition: Home Clinical Impression: Chronic back pain Condition: Stable Critical Care Time: No Referrals: GONZALO MCNEAL [Primary Care Provider] - Instructions: Low Back Pain (DC), Sciatica (DC)
--- NOTE | 2019-11-10 10:42 | XRAY ---
Indication: Low back pain 2 weeks. No known injury. Comparison: November 12, 2018. 3 views of the lumbar spine unchanged again demonstrating minimal bilateral L5-S1 degenerative facet arthropathy, right mid renal calculus, and cholecystectomy clips. No new/acute findings.
== END 2019-11-10 10:57 | disposition home or self-care (01) ==
LOC: ED 09:34
DX: M54.5 Low back pain (principal); G89.29 Other chronic pain; F45.42 Pain disorder with related psychological factors
CPT/HCPCS: 72100; 96372; 99284; J1885; A9270-GY

== ENCOUNTER 2024-05-01 09:03 | Emergency (ER) | payer BC ==
--- NOTE | 2024-05-01 09:18 | ERPHSYRPT ---
- History of Present Illness Time Seen by Provider: 05/01/24 09:18 Source: patient Exam Limitations: no limitations Physician History: This is a morbidly obese 59-year-old white female patient of nurse practitioner Demond who has a history of gastroesophageal reflux disease and hypertension and presented to the outpatient clinic with complaints of headache. Blood pressure was taken at the clinic and her systolic blood pressures greater than 200 and therefore she was sent to the emergency department for evaluation management. On arrival to the emergency department her initial systolic blood pressure was 229 mmHg. Patient took her blood pressure medication at 7 AM this morning. Patient states that she has a history of sudden increase in her blood pressure when she is in pain. She has been having problems with her chronic sciatica. A week ago, she was given an injection of Kenalog for the sciatica pain. This morning, she woke up and had the pain present. She states the typical pattern is she has sciatica pain which increases her blood pressure then she has a headache. Patient states that she has sharp pain behind her left eye. Timing/Duration: today Head Pain Location: frontal (Sharp pain behind the left eye) Severity of Pain-Max: moderate Severity of Pain-Current: moderate Recent Head Trauma: no recent headache/trauma Modifying Factors: Improves With: exposure to light, noise Associated Symptoms: other (Patient does not have a stiff neck but does feel pain posteriorly in her neck and the muscle regions but not on the bony vertebra), No vision changes, No visual disturbance Previous symptoms: same symptoms as today, recently treated Allergies/Adverse Reactions: metoprolol [From Toprol XL] Allergy (Verified 05/01/24 09:20) body felt numb morphine Allergy (Verified 05/01/24 09:20) Home Medications: Lisinopril 10 mg [Zestril 10 MG] 20 mg PO DAILY 06/24/17 [History] Escitalopram Oxalate [Lexapro] 10 mg PO DAILY 05/01/24 [History] Hx Tetanus, Diphtheria Vaccination/Date Given: Yes Hx Influenza Vaccination/Date Given: Yes Hx Pneumococcal Vaccination/Date Given: No Travel Risk - International Travel Have you traveled outside of the country in past 3 weeks: No - Emerging Infectious Disease Are you exhibiting symptoms associated with any current EIDs: Yes Symptoms: Headaches/Body Aches/ - Review of Systems Constitutional: No Symptoms Eyes: No Symptoms Ears, Nose, & Throat: No Symptoms Respiratory: No Symptoms Cardiac: No Symptoms Abdominal/Gastrointestinal: No Symptoms Genitourinary Symptoms: No Symptoms Musculoskeletal: Back Pain (Sciatica painacute exacerbation of a chronic condition) Skin: No Symptoms Neurological: No Symptoms Psychological: No Symptoms Endocrine: No Symptoms Hematologic/Lymphatic: No Symptoms Immunological/Allergic: No Symptoms All Other Systems: Reviewed and Negative - Past Medical History Pertinent Past Medical History: Yes Cardiac History: Hypertension GI Medical History: Gallbladder Disease - Past Surgical History Past Surgical History: Yes Gastrointestinal: Cholecystectomy Female Surgical History: Hysterectomy, Section Other Surgical History: bartholin gland removed - Social History Smoking Status: Never smoker Exposure to second hand smoke: No Drug Use: none Patient Lives Alone: No - Nursing Vital Signs Nursing Vital Signs: Initial Vital Signs Temperature 97.6 F 05/01/24 09:11 Pulse Rate 71 05/01/24 09:11 Respiratory Rate 17 05/01/24 09:11 Blood Pressure 229/107 05/01/24 09:11 O2 Sat by Pulse Oximetry 97 05/01/24 09:11 Pain Scale Pain Intensity 0 - Physical Exam General Appearance: no apparent distress, alert, anxiety, obese Eye Exam: PERRL/EOMI, eyes nml inspection Ears, Nose, Throat Exam: normal ENT inspection, moist mucous membranes Neck Exam: normal inspection, supple, full range of motion, other (Bilateral paraspinous muscle tenderness to palpation at the level of the cervical spine), No meningismus, No midline tenderness Respiratory Exam: normal breath sounds, lungs clear, airway intact, No chest tenderness, No respiratory distress Cardiovascular Exam: regular rate/rhythm, normal heart sounds, normal peripheral pulses Gastrointestinal/Abdominal Exam: soft, normal bowel sounds, No tenderness Back Exam: normal inspection, normal range of motion, No CVA tenderness, No vertebral tenderness Extremity Exam: normal inspection, normal range of motion, pelvis stable Mental Status Exam: alert, oriented x 3, 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 QTc is 445) Ordered Tests: Active Orders 24 hr Category Date Time Status EKG-ER Only STAT Care 05/01/24 09:36 Active IV Insertion STAT Care 05/01/24 09:26 Active Pulse Oximetry (ED) STAT Care 05/01/24 09:32 Active HEAD WITHOUT CONTRAST [CT] Stat Exams 05/01/24 09:26 Completed CBC W DIFF Stat Lab 05/01/24 09:55 Completed CMP Stat Lab 05/01/24 09:55 Results MONO SCREEN Stat Lab 05/01/24 09:55 Completed UA W/RFX UR CULTURE Stat Lab 05/01/24 09:55 Completed Medication Summary Discontinued Medications Generic Name Dose Route Start Last Admin Trade Name Freq PRN Reason Stop Dose Admin Diphenhydramine HCl 25 mg 05/01/24 09:32 05/01/24 09:50 Diphenhydramine Hcl 50 Mg/Ml Vial IV 05/01/24 09:33 25 mg STAT ONE Administration Diphenhydramine HCl Confirm 05/01/24 09:49 Diphenhydramine Hcl 50 Mg/Ml Vial Administered 05/01/24 09:50 Dose 50 mg .ROUTE .STK-MED ONE Droperidol 1.25 mg 05/01/24 09:32 05/01/24 09:52 Droperidol 5 Mg/2 Ml Vial IV 05/01/24 09:33 1.25 mg STAT ONE Administration Droperidol Confirm 05/01/24 09:48 Droperidol 5 Mg/2 Ml Vial Administered 05/01/24 09:49 Dose 5 mg .ROUTE .STK-MED ONE Hydralazine HCl 5 mg 05/01/24 10:54 05/01/24 11:52 Hydralazine Hcl 20 Mg/Ml Vial IV 05/01/24 10:55 Not Given STAT ONE Hydralazine HCl 10 mg 05/01/24 11:23 05/01/24 11:25 Hydralazine Hcl 20 Mg/Ml Vial IV 05/01/24 11:24 10 mg STAT ONE Administration Hydralazine HCl Confirm 05/01/24 11:24 Hydralazine Hcl 20 Mg/Ml Vial Administered 05/01/24 11:25 Dose 20 mg .ROUTE .STK-MED ONE Ketorolac Tromethamine 30 mg 05/01/24 09:32 05/01/24 09:52 Ketorolac Tromethamine 30 Mg/Ml Inj IV 05/01/24 09:33 30 mg STAT ONE Administration Ketorolac Tromethamine Confirm 05/01/24 09:48 Ketorolac Tromethamine 30 Mg/Ml Inj Administered 05/01/24 09:49 Dose 30 mg .ROUTE .STK-MED ONE Lorazepam 1 mg 05/01/24 11:52 05/01/24 11:57 Lorazepam 2 Mg/1 Ml 2 Mg Vial IV 05/01/24 11:53 1 mg STAT ONE Administration Lorazepam Confirm 05/01/24 11:55 Lorazepam 2 Mg/1 Ml 2 Mg Vial Administered 05/01/24 11:56 Dose 2 mg .ROUTE .STK-MED ONE Lab/Rad Data: Laboratory Result Diagrams 05/01/24 09:55 05/01/24 09:55 Laboratory Results 05/01/24 05/01/24 05/01/24 Range/Units 09:55 09:55 09:55 WBC (3.98-10.04) x10^3/uL RBC (3.93-5.22) x10^6/uL Hgb (11.2-15.7) g/dL Hct (34.1-44.9) % MCV (79.4-94.8) fL MCH (25.6-32.2) pg MCHC (32.2-35.5) g/dL RDW (11.7-14.4) % Plt Count (182-369) x10^3/uL MPV (9.4-12.3) fL Gran % (34.0-71.1) % Immature Gran % (Auto) (0.001-0.429) % Nucleat RBC Rel Count (0.00-0.2) % Eos # (Auto) (0.04-0.36) x10^3/uL Immature Gran # (Auto) (0.001-0.031) x10^3u/L Absolute Lymphs (auto) (1.18-3.74) x10^3/uL Absolute Monos (auto) (0.24-0.86) x10^3/uL Absolute Nucleated RBC (0.00-0.012) x10^3u/L Lymphocytes % (19.3-51.7) % Monocytes % (4.7-12.5) % Eosinophils % (0.7-5.8) % Basophils % (0.1-1.2) % Absolute Granulocytes (1.56-6.13) x10^3/uL Basophils # (0.01-0.08) x10^3/uL Sodium Pending Sodium Direct 137 L (138-146) mmol/L Potassium 4.0 (3.5-4.9) mmol/L Chloride 102 (98-109) mmol/L Carbon Dioxide 25 (24-29) mmol/L Anion Gap Pending BUN Pending Venous BUN 21 (8-26) mg/dL Creatinine 0.9 (0.6-1.3) mg/dL Estimated GFR Pending Glucose 96 (70-105) mg/dL Calcium Pending Ionized Calcium 1.16 (1.12-1.32) mmol/L Total Bilirubin Pending AST Pending ALT Pending Alkaline Phosphatase Pending Serum Total Protein Pending Albumin Pending Urine Color (Yellow) Urine Appearance (Clear) Urine pH (4.6-8.0) Ur Specific [place] (1.005-1.030) Urine Protein (Negative) Urine Glucose (UA) (Negative) mg/dL Urine Ketones (Negative) Urine Blood (Negative) Urine Nitrite (Negative) Urine Bilirubin (Negative) Urine Urobilinogen (0.2) mg/dL Ur Leukocyte Esterase (Negative) U Hyaline Cast (Auto) (0-2) /LPF Urine Microscopic RBC (0-5) /HPF Urine Microscopic WBC (0-5) /HPF Ur Epithelial Cells (None Seen) /HPF Urine Bacteria (None Seen) /HPF Urine Culture Reflexed (NO) Monoscreen NEGATIVE (NEGATIVE) Influenza Type A Ag NEGATIVE (NEGATIVE) Influenza Type B Ag NEGATIVE (NEGATIVE) RSV (PCR) NEGATIVE (NEGATIVE) SARS-CoV-2 (PCR) NEGATIVE (NEGATIVE) 05/01/24 05/01/24 Range/Units 09:55 09:55 WBC 7.2 (3.98-10.04) x10^3/uL RBC 4.52 (3.93-5.22) x10^6/uL Hgb 13.9 (11.2-15.7) g/dL Hct 41.5 (34.1-44.9) % MCV 91.8 (79.4-94.8) fL MCH 30.8 (25.6-32.2) pg MCHC 33.5 (32.2-35.5) g/dL RDW 12.2 (11.7-14.4) % Plt Count 295 (182-369) x10^3/uL MPV 10.4 (9.4-12.3) fL Gran % 75.0 H (34.0-71.1) % Immature Gran % (Auto) 0.3 (0.001-0.429) % Nucleat RBC Rel Count 0.0 (0.00-0.2) % Eos # (Auto) 0.06 (0.04-0.36) x10^3/uL Immature Gran # (Auto) 0.02 (0.001-0.031) x10^3u/L Absolute Lymphs (auto) 1.39 (1.18-3.74) x10^3/uL Absolute Monos (auto) 0.30 (0.24-0.86) x10^3/uL Absolute Nucleated RBC 0.00 (0.00-0.012) x10^3u/L Lymphocytes % 19.4 (19.3-51.7) % Monocytes % 4.2 L (4.7-12.5) % Eosinophils % 0.8 (0.7-5.8) % Basophils % 0.3 (0.1-1.2) % Absolute Granulocytes 5.37 (1.56-6.13) x10^3/uL Basophils # 0.02 (0.01-0.08) x10^3/uL Sodium Sodium Direct (138-146) mmol/L Potassium (3.5-4.9) mmol/L Chloride (98-109) mmol/L Carbon Dioxide (24-29) mmol/L Anion Gap BUN Venous BUN (8-26) mg/dL Creatinine (0.6-1.3) mg/dL Estimated GFR Glucose (70-105) mg/dL Calcium Ionized Calcium (1.12-1.32) mmol/L Total Bilirubin AST ALT Alkaline Phosphatase Serum Total Protein Albumin Urine Color Yellow (Yellow) Urine Appearance Clear (Clear) Urine pH 5.5 (4.6-8.0) Ur Specific [place] 1.015 (1.005-1.030) Urine Protein Negative (Negative) Urine Glucose (UA) Negative (Negative) mg/dL Urine Ketones Negative (Negative) Urine Blood Moderate A (Negative) Urine Nitrite Negative (Negative) Urine Bilirubin Negative (Negative) Urine Urobilinogen 0.2 (0.2) mg/dL Ur Leukocyte Esterase Negative (Negative) U Hyaline Cast (Auto) NONE SEEN (0-2) /LPF Urine Microscopic RBC 6-10 A (0-5) /HPF Urine Microscopic WBC 0-2 (0-5) /HPF Ur Epithelial Cells None Seen (None Seen) /HPF Urine Bacteria None Seen (None Seen) /HPF Urine Culture Reflexed NO (NO) Monoscreen (NEGATIVE) Influenza Type A Ag (NEGATIVE) Influenza Type B Ag (NEGATIVE) RSV (PCR) (NEGATIVE) SARS-CoV-2 (PCR) (NEGATIVE) - Progress Progress: improved, re-examined Air Movement: good Progress Note: 05/01/24 09:42 My medical decision making and the assignment of moderate complexity to this patient's medical issue today is based on review of the patient's past medical history, review the patient's medication list, reviewed patient drug allergy list, history present illness and physical findings on examination. The workup in this patient includes placement of intravenous line, CBC, CMP, viral swabs, monotest, urinalysis, CT scan of the head without contrast, twelve-lead EKG. Will provide the patient with intravenous dose of Toradol, Benadryl and droperidol. Differential diagnosis includes but is not limited to hypertension, acute in tracranial abnormality, migraine headache, dehydration, urinary tract infection, viral illness 05/01/24 11:[address] scan of the head without contrast was interpreted by the radiologist and I reviewed the impression. The impression states normal CT scan of the head without contrast. 05/01/24 12:31 I interpreted the patient's laboratory data results. Based on the laboratory data results. There are no acute, emergent medical issues. Patient was reexamined. Her systolic blood pressure is now 168. Patient states she is very comfortable. She no longer has a headache and she does not have her sciatica pain. She denies chest pain and she denies shortness of breath. Repeat blood pressure reading is 158/96. Blood Culture(s) Obtained: No Antibiotics given: No Counseled pt/family regarding: lab results, diagnosis, need for follow-up, rad results Medical Desision Making - Independent Historian Additional History obtained from: Spouse - Diagnostic Testing Diagnostic test were ordered, analyzed, and reviewed by me: Yes Radiological Interpretation: Reviewed by me, Teleradiologist Report - Risk of complications Low Risk: Low risk of morbidity from additional dx testing or treatment - Departure Departure Disposition: Home Clinical Impression: Headache, Hypertension Condition: Stable Critical Care Time: No Referrals: GONZALO LAGOS NP [Primary Care Provider] - Follow up/PCP as directed Additional Instructions: Take your medication as prescribed. Call nurse practitioner Karolina Lagos today, 05/01/2024, to obtain instructions for your blood pressure medication and to make arranges for follow-up appointment.
[2024-05-01 09:35] VITALS: TEMP 97.6
[2024-05-01] MEDS ORDERED: TORAdol 30 mg Injection ONE (09:48)
[2024-05-01] MEDS ORDERED: BENADRYL 50 MG/ML ONE (09:49)
[2024-05-01] MEDS: BENADRYL 50 MG/ML IV ONE (09:50)
[2024-05-01] MEDS: TORAdol 30 mg Injection IV ONE (09:52)
[2024-05-01 10:10] LABS: Absolute Neutrophil Ct (ANC) 5.37 x10^3/uL (1.56-6.13); BASOPHIL % 0.3 % (0.1-1.2); Basophil (Absolute #) 0.02 x10^3/uL (0.01-0.08); Eosinophil % 0.8 % (0.7-5.8); Eosinophil (Absolute #) 0.06 x10^3/uL (0.04-0.36); Hematocrit 41.5 % (34.1-44.9); Hemoglobin 13.9 g/dL (11.2-15.7); IMMATURE GRAN # 0.02 x10^3u/L (0.001-0.031); IMMATURE GRAN % 0.3 % (0.001-0.429); Lymphocyte (Absolute #) 1.39 x10^3/uL (1.18-3.74); Lymphocytes % 19.4 % (19.3-51.7); Mean Cell Volume 91.8 fL (79.4-94.8); Mean Corpuscular Hemoglobin 30.8 pg (25.6-32.2); Mean Corpuscular Hgb Concent. 33.5 g/dL (32.2-35.5); Mean Platelet Volume 10.4 fL (9.4-12.3); Monocytes % 4.2 % (4.7-12.5); Platelet Count 295 x10^3/uL (182-369); Red Blood Count 4.52 x10^6/uL (3.93-5.22); Red Cell Distribution Width 12.2 % (11.7-14.4); White Blood Count 7.2 x10^3/uL (3.98-10.04)
[2024-05-01 10:32] LABS: Appearance Clear (Clear); Bacteria None Seen /HPF (None Seen); Bilirubin Negative (Negative); Blood Moderate (Negative); Epithelial Cells None Seen /HPF (None Seen); Glucose, Urine Negative (Negative); Hyaline Casts NONE SEEN /LPF (0-2); Ketones Negative (Negative); Leukocyte Esterase Negative (Negative); Nitrite Negative (Negative); Ph 5.5 (4.6-8.0); Protein,Urine Dip Negative (Negative); Specific Gravity 1.015 (1.005-1.030); Urobilinogen 0.2 mg/dL (0.2); WBC 0-2 /HPF (0-5)
[2024-05-01 10:44] LABS: ISTAT CL 102 mmol/L (98-109); ISTAT NA 137 mmol/L (138-146); ISTAT iCA 1.16 mmol/L (1.12-1.32)
[2024-05-01 10:45] LABS: ISTAT BUN 21 mg/dL (8-26); ISTAT CO2 25 mmol/L (24-29); ISTAT CREA 0.9 mg/dL (0.6-1.3); ISTAT GLUC 96 mg/dL (70-105)
[2024-05-01 10:46] LABS: INFLUENZA A NEGATIVE (NEGATIVE); INFLUENZA B NEGATIVE (NEGATIVE); RESPIRATORY SYNCTIAL VIRUS NEGATIVE (NEGATIVE); SARS-CoV-2 Xpert Express NEGATIVE (NEGATIVE)
--- NOTE | 2024-05-01 11:00 | XRAY ---
Indication: Headache. Hypertension. Multiple contiguous axial images obtained through the head without contrast. Comparison: None Normal appearing brain parenchyma, ventricles, and bony calvarium for patient's age. Visualized paranasal sinuses and mastoid air cells are clear. Impression: Normal CT head without contrast exam.
[2024-05-01] MEDS ORDERED: APRESOLINE 20 MG/ML INJ ONE (11:24)
[2024-05-01] MEDS: APRESOLINE 20 MG/ML INJ IV ONE ×2 (11:25→11:52)
[2024-05-01] MEDS ORDERED: Ativan 2 MG/1 ML VIAL ONE (11:55)
[2024-05-01] MEDS: Ativan 2 MG/1 ML VIAL IV ONE (11:57)
[2024-05-01 12:21] VITALS: BP 162/108; PULSE 72; RESP 7; O2SAT 95
== END 2024-05-01 12:52 | disposition home or self-care (01) ==
LOC: ED 09:03
DX: I10 Essential (primary) hypertension (principal); R51.9 Headache, unspecified; Z79.899 Other long term (current) drug therapy
CPT/HCPCS: 0241U; 36000; 70450; 80047; 80053; 81001; 85025; 86308; 93005; 94760; 96374; 96375; 99284; 36415; J0360; J1200; J1885; J2060